=== PATIENT | male | born 1960 | race Caucasian/White ===

== ENCOUNTER 2023-06-03 17:44 | Emergency (ER) | payer OTHER, MEDICAID ==
[~2023-06-03] VITALS: Ht 182.9 cm; Wt 100.0 kg
[~2023-06-03 17:44] MED LIST: AMLO5TAB16 PO; BICA50TA7 PO; CLON1TAB13 PO; ERGO500093 PO; ESCI20TA39 PO; GABA600T13 PO; LOSA100T58 PO; METO50TA17 PO; OXYC-658 PO; PANT40TA54 PO; SUVO20TA PO
[2023-06-03] MEDS: proCHLORperazine 10 MG/2 ml inj IV ONE (19:05)
[2023-06-03] MEDS: pantoprazole 40 MG vial IV ONE (19:05)
[2023-06-03] MEDS: normal saline 1000ML IV soln IVB ONE (19:05)
[2023-06-03] MEDS: LORazepam 2 mg/ml vial IV ONE (19:05)
[2023-06-03 19:35] LABS: BASOPHILS % (AUTO) 0.4 % (0-1); EOSINOPHILS # (AUTO) 0.2 X10'3 (0-0.9); EOSINOPHILS % (AUTO) 1.7 % (0-6); HEMATOCRIT 26.5 % (42.0-52.0); HEMOGLOBIN 9.1 g/dl (14.0-17.9); LYMPHOCYTES % (AUTO) 11.6 % (21-51); MEAN CORPUSCULAR HGB CONC 34.3 g/dL (33.0-36.5); MEAN CORPUSCULAR VOLUME 87.3 FL (78-98); MEAN PLATELET VOLUME 7.9 FL (7.4-10.4); MONOCYTES # (AUTO) 0.9 X10'3 (0-0.9); MONOCYTES % (AUTO) 10.6 % (2-12); NEUTROPHILS # (AUTO) 6.7 X10'3 (1.8-7.7); NEUTROPHILS % (AUTO) 75.7 % (42-75); PLATELET COUNT 328 X10'3 (140-440); RED BLOOD COUNT 3.03 X10'6 (4.70-6.10); RED CELL DISTRIBUTION WIDTH 13.7 % (11.5-14.5); WHITE BLOOD COUNT 8.9 X10'3 (4.5-11.0)
[2023-06-03 19:39] LABS: ALANINE AMINOTRANSFERASE 10 U/L (12-78); ALBUMIN/GLOBULIN RATIO 0.8 (1.1-1.5); ALKALINE PHOSPHATASE 119 IU/L (46-116); ANION GAP 6 (8-16); ASPARTATE AMINO TRANSFERASE 6 U/L (10-37); BILIRUBIN,TOTAL 0.4 MG/DL (0.1-1.0); BLOOD UREA NITROGEN 15 MG/DL (7-18); BUN/CREATININE RATIO 17.9 (10.0-20.0); CALCIUM 8.2 MG/DL (8.5-10.1); CHLORIDE 99 MMOL/L (99-107); CREATININE 0.84 MG/DL (0.60-1.10); GLUCOSE 122 MG/DL (70-104); POTASSIUM 4.3 MMOL/L (3.5-5.1); SODIUM 136 MMOL/L (135-145); TOTAL CARBON DIOXIDE 30.6 MMOL/L (24-32); TOTAL PROTEIN 6.9 G/DL (6.4-8.2); eCRCL 101 ML/MIN; eGFR > 90 ML/MIN
[2023-06-03 19:47] LABS: LIPASE 30 U/L (16-77)
[2023-06-03 21:32] LABS: BILIRUBIN,URINE NEGATIVE (Neg); CLARITY,URINE CLEAR (Clear); COLOR,URINE YELLOW (Yellow); GLUCOSE, URINE NEGATIVE (Neg); KETONES,URINE NEGATIVE (Neg); LEUKOCYTE ESTERASE ,URINE NEGATIVE (Neg); NITRITES, URINE NEGATIVE (Neg); OCCULT BLOOD,URINE NEGATIVE (Neg); PROTEIN,URINE NEGATIVE (Neg)
[2023-06-03 21:35] LABS: UA COLLECTION TYPE CLN CATCH MIDSTREAM
[2023-06-03 23:27] VITALS: BP 136/68; PULSE 80; RESP 18; TEMP 98.6; O2SAT 98
== END 2023-06-03 23:30 | disposition home or self-care (01) ==
LOC: ER 17:44
DX: M79.605 Pain in left leg (principal); R10.9 Unspecified abdominal pain; R11.10 Vomiting, unspecified; I10 Essential (primary) hypertension; R11.0 Nausea; Z79.899 Other long term (current) drug therapy
CPT/HCPCS: 36415; 71045; 80053; 81003; 83690; 84484; 85025; 93005; 99285; A6449

== ENCOUNTER 2023-06-11 18:32 | Inpatient (IN) | payer OTHER, MEDICAID ==
[~2023-06-11] VITALS: Ht 182.9 cm; Wt 91.3 kg
[2023-06-11 23:26] LABS: BILIRUBIN,URINE NEGATIVE (Neg); CLARITY,URINE CLEAR (Clear); COLOR,URINE YELLOW (Yellow); GLUCOSE, URINE NEGATIVE (Neg); KETONES,URINE NEGATIVE (Neg); LEUKOCYTE ESTERASE ,URINE NEGATIVE (Neg); NITRITES, URINE NEGATIVE (Neg); OCCULT BLOOD,URINE NEGATIVE (Neg); PROTEIN,URINE NEGATIVE (Neg); UROBILINOGEN,URINE 0.2 E.U/dL (0.2-1.0)
[2023-06-11 23:29] LABS: UA COLLECTION TYPE CLN CATCH MIDSTREAM
[2023-06-12] MEDS ORDERED: mag hydrox/Alum hydrox/simeth 30ml oral suspension PO PRN (00:05)
[2023-06-12] MEDS ORDERED: ondansetron/PF 4mg/2ml inj IV PRN (00:05)
[2023-06-12] MEDS ORDERED: potassium Cl 40MEQ/1/2NS 520ml 520 ML IV PRN (00:05)
[2023-06-12] MEDS ORDERED: magnesium hydroxide 30ml (MOM) UD suspension PO PRN (00:05)
[2023-06-12] MEDS ORDERED: magnesium 4gm in 100ml NS 100 ML IV PRN (00:05)
[2023-06-12] MEDS ORDERED: magnesium Cl slow-release 64mg tablet PO PRN (00:05)
[2023-06-12] MEDS ORDERED: acetaminophen 325mg tablet PO PRN (00:05)
[2023-06-12] MEDS ORDERED: potassium Cl 20 mEq SR tablet PO PRN ×2 (00:05)
[2023-06-12] MEDS: normal saline 1000ml 1,000 ML IV SCH (01:03)
[2023-06-12] MEDS: HYDROcodone/acetaminophen 10/325mg tab PO PRN (01:08)
[2023-06-12] MEDS ORDERED: HYDROcodone/acetaminophen 10/325mg tab PO PRN (04:35)
[2023-06-12] MEDS: HYDROmorphone 1 mg/ml syringe IV ONE (05:20)
[2023-06-12 06:02] LABS: ALBUMIN 3.1 G/DL (3.4-5.0); ANION GAP 10 (8-16); BLOOD UREA NITROGEN 21 MG/DL (7-18); BUN/CREATININE RATIO 22.8 (10.0-20.0); CALCIUM 8.8 MG/DL (8.5-10.1); CHLORIDE 104 MMOL/L (99-107); CREATININE 0.92 MG/DL (0.60-1.10); GLUCOSE 78 MG/DL (70-104); POTASSIUM 4.2 MMOL/L (3.5-5.1); SODIUM 142 MMOL/L (135-145); TOTAL CARBON DIOXIDE 27.9 MMOL/L (24-32); eCRCL 93 ML/MIN; eGFR 84 ML/MIN
[2023-06-12 06:09] LABS: BASOPHILS % (AUTO) 0.6 % (0-1); EOSINOPHILS # (AUTO) 0.1 X10'3 (0-0.9); HEMATOCRIT 30.4 % (42.0-52.0); LYMPHOCYTES # (AUTO) 1.1 X10'3 (1.1-4.8); LYMPHOCYTES % (AUTO) 15.6 % (21-51); MEAN CORPUSCULAR HEMOGLOBIN 28.6 PG (27.0-31.0); MEAN CORPUSCULAR HGB CONC 32.8 g/dL (33.0-36.5); MONOCYTES # (AUTO) 0.6 X10'3 (0-0.9); MONOCYTES % (AUTO) 7.9 % (2-12); NEUTROPHILS # (AUTO) 5.3 X10'3 (1.8-7.7); NEUTROPHILS % (AUTO) 74.9 % (42-75); PLATELET COUNT 455 X10'3 (140-440); RED BLOOD COUNT 3.49 X10'6 (4.70-6.10); RED CELL DISTRIBUTION WIDTH 13.8 % (11.5-14.5)
[2023-06-12 07:15] VITALS: BP 155/69; PULSE 71; RESP 18; TEMP 98.2; O2SAT 96
[2023-06-12] MEDS: docusate sod 100mg capsule PO SCH (07:31)
[2023-06-12] MEDS: HYDROmorphone/PF 0.2 MG/ML SYRINGE IV PRN (07:31)
[2023-06-12] MEDS: enoxaparin 40mg/0.4ml syringe SUBCUT SCH (07:32)
[2023-06-12 08:42] VITALS: RESP 18; O2SAT 96
[2023-06-12 12:06] VITALS: BP 139/66; PULSE 69; RESP 16; TEMP 98.1; O2SAT 97
[2023-06-12] MEDS: oxyCODONE/APAP 10/325mg tablet PO PRN (12:25)
[2023-06-12] MEDS: ibuprofen 200mg tablet PO ONE (16:17)
[2023-06-12] MEDS: clonazePAM 1mg tablet PO ONE (16:17)
[2023-06-12 18:00] VITALS: BP 138/82; PULSE 83; RESP 18; TEMP 98; O2SAT 97
[2023-06-12 20:20] VITALS: RESP 18; O2SAT 97
[2023-06-12] MEDS: traMADol 50MG tablet PO PRN (21:55)
[2023-06-12 22:00] VITALS: BP 148/58; PULSE 54; RESP 18; TEMP 97.8; O2SAT 97
[2023-06-13] VITALS (8 sets, daily range): BP systolic 133–152; BP diastolic 59–98; PULSE 60–103; RESP 14–20; TEMP 97.6–98.1; O2SAT 93–97
[2023-06-13 05:51] LABS: ALBUMIN 2.7 G/DL (3.4-5.0); ANION GAP 10 (8-16); BLOOD UREA NITROGEN 15 MG/DL (7-18); BUN/CREATININE RATIO 20.3 (10.0-20.0); CALCIUM 8.4 MG/DL (8.5-10.1); CHLORIDE 103 MMOL/L (99-107); CREATININE 0.74 MG/DL (0.60-1.10); GLUCOSE 85 MG/DL (70-104); POTASSIUM 3.5 MMOL/L (3.5-5.1); SODIUM 140 MMOL/L (135-145); TOTAL CARBON DIOXIDE 27.5 MMOL/L (24-32); eCRCL 115 ML/MIN; eGFR > 90 ML/MIN
[2023-06-13 05:56] LABS: BASOPHILS % (AUTO) 0.7 % (0-1); EOSINOPHILS # (AUTO) 0.2 X10'3 (0-0.9); EOSINOPHILS % (AUTO) 2.9 % (0-6); HEMATOCRIT 26.6 % (42.0-52.0); LYMPHOCYTES # (AUTO) 1.7 X10'3 (1.1-4.8); LYMPHOCYTES % (AUTO) 28.4 % (21-51); MEAN CORPUSCULAR VOLUME 85.3 FL (78-98); MEAN PLATELET VOLUME 7.5 FL (7.4-10.4); MONOCYTES # (AUTO) 0.7 X10'3 (0-0.9); MONOCYTES % (AUTO) 11.9 % (2-12); NEUTROPHILS # (AUTO) 3.4 X10'3 (1.8-7.7); NEUTROPHILS % (AUTO) 56.1 % (42-75); PLATELET COUNT 402 X10'3 (140-440); RED BLOOD COUNT 3.11 X10'6 (4.70-6.10); RED CELL DISTRIBUTION WIDTH 14.1 % (11.5-14.5); WHITE BLOOD COUNT 6.1 X10'3 (4.5-11.0)
[2023-06-13] MEDS ORDERED: clonazePAM 1mg tablet PO PRN (13:25)
[2023-06-13] MEDS ORDERED: SUVOREXANT 20 MG PO PRN (13:35)
[2023-06-13] MEDS: pantoprazole 40mg Tablet.DR PO SCH (13:56)
[2023-06-13] MEDS: amLODIPine 5mg tablet PO SCH (13:56)
[2023-06-13] MEDS ORDERED: metoprolol tartrate 50mg tablet PO SCH (20:00)
[2023-06-13] MEDS ORDERED: gabapentin 300mg capsule PO SCH (21:00)
[2023-06-14] MEDS ORDERED: losartan 50mg tablet PO SCH (08:00)
[2023-06-14] MEDS ORDERED: ESCITALOPRAM 10 mg tablet 10 MG TABLET PO SCH (08:00)
== END 2023-06-13 17:51 | disposition home health service (06) | DRG 93 ==
LOC: ER 18:33 → ED HOLD 06-12 00:05 → SUR 3N 06-12 07:12
PROVIDERS: ADMIT Internal Medicine Critical Care Medicine; ATTEND Internal Medicine
DX: G89.4 Chronic pain syndrome (principal); I10 Essential (primary) hypertension; M25.579 Pain in unspecified ankle and joints of unspecified foot; R53.1 Weakness; C61 Malignant neoplasm of prostate; Z79.899 Other long term (current) drug therapy
CPT/HCPCS: 36415; 80048; 81003; 85025; 87081; 97116; 97161; 97530; 99285; A6446; A6449; G0378; J1170; J1650; J7030

== ENCOUNTER 2023-08-15 17:24 | Inpatient (IN) | payer OTHER, MEDICAID ==
[~2023-08-15] VITALS: Ht 180.3 cm; Wt 101.3 kg
[2023-08-15 21:00] VITALS: BP 147/75; PULSE 66; RESP 16; TEMP 97.3; O2SAT 99
[2023-08-15] MEDS ORDERED: ringers solution, lacted 1,000 ML IV SCH (21:45)
[2023-08-15 23:06] LABS: BASOPHILS % (AUTO) 0.5 % (0-1); EOSINOPHILS # (AUTO) 0.3 X10'3 (0-0.9); EOSINOPHILS % (AUTO) 3.3 % (0-6); LYMPHOCYTES # (AUTO) 1.5 X10'3 (1.1-4.8); LYMPHOCYTES % (AUTO) 18.2 % (21-51); MEAN CORPUSCULAR HEMOGLOBIN 28.2 PG (27.0-31.0); MEAN CORPUSCULAR HGB CONC 33.1 g/dL (33.0-36.5); MEAN CORPUSCULAR VOLUME 85.2 FL (78-98); MEAN PLATELET VOLUME 7.2 FL (7.4-10.4); MONOCYTES # (AUTO) 0.8 X10'3 (0-0.9); MONOCYTES % (AUTO) 9.8 % (2-12); NEUTROPHILS # (AUTO) 5.8 X10'3 (1.8-7.7); NEUTROPHILS % (AUTO) 68.2 % (42-75); PLATELET COUNT 273 X10'3 (140-440); RED BLOOD COUNT 3.17 X10'6 (4.70-6.10); RED CELL DISTRIBUTION WIDTH 15.2 % (11.5-14.5); WHITE BLOOD COUNT 8.4 X10'3 (4.5-11.0)
[2023-08-15 23:18] LABS: ALANINE AMINOTRANSFERASE 8 U/L (12-78); ALBUMIN 2.9 G/DL (3.4-5.0); ALBUMIN/GLOBULIN RATIO 0.7 (1.1-1.5); ALKALINE PHOSPHATASE 114 IU/L (46-116); ANION GAP 2 (8-16); ASPARTATE AMINO TRANSFERASE 4 U/L (10-37); BILIRUBIN,TOTAL 0.3 MG/DL (0.1-1.0); BLOOD UREA NITROGEN 19 MG/DL (7-18); BUN/CREATININE RATIO 18.4 (10.0-20.0); CHLORIDE 103 MMOL/L (99-107); CREATININE 1.03 MG/DL (0.60-1.10); GLUCOSE 115 MG/DL (70-104); POTASSIUM 3.8 MMOL/L (3.5-5.1); SODIUM 138 MMOL/L (135-145); TOTAL CARBON DIOXIDE 32.6 MMOL/L (24-32); eCRCL 79 ML/MIN; eGFR 73 ML/MIN
[2023-08-15] MEDS ORDERED: ENZA40TA PO (23:24)
[2023-08-15] MEDS ORDERED: CARI1.5C PO (23:24)
[2023-08-15] MEDS ORDERED: OXYC20TA55 PO (23:24)
[2023-08-15] MEDS: ringers solution, lacted 1,000 ML IV SCH (23:38)
[2023-08-16] VITALS (16 sets, daily range): BP systolic 134–190; BP diastolic 62–99; PULSE 56–72; RESP 15–20; TEMP 97.1–98.7; O2SAT 95–100
[2023-08-16] MEDS ORDERED: vancomycin 1,500 MG in NS 300ml IV soln IV ONE (05:30)
[2023-08-16] MEDS ORDERED: cefazolin 2gm/D5W 100mL 100 ML IV ONE (05:30)
[2023-08-16] MEDS: cefazolin 2gm/D5W 100mL 100 ML IV ONE ×2 (05:30→22:00)
[2023-08-16] MEDS: DOCUMENT DATE & TIME OF BETA-BLOCKER PO ONE (06:05)
[2023-08-16] MEDS ORDERED: losartan 50mg tablet PO SCH (08:00)
[2023-08-16] MEDS ORDERED: amLODIPine 5mg tablet PO SCH (08:00)
[2023-08-16] MEDS ORDERED: ceFAZolin/D5W- 1GM premix 50 ML IV ONE (08:00)
[2023-08-16 08:32] LABS: BASOPHILS % (AUTO) 0.7 % (0-1); EOSINOPHILS # (AUTO) 0.3 X10'3 (0-0.9); EOSINOPHILS % (AUTO) 4.2 % (0-6); HEMOGLOBIN 9.2 g/dl (14.0-17.9); LYMPHOCYTES # (AUTO) 1.3 X10'3 (1.1-4.8); LYMPHOCYTES % (AUTO) 18.5 % (21-51); MEAN CORPUSCULAR HEMOGLOBIN 27.7 PG (27.0-31.0); MEAN CORPUSCULAR HGB CONC 32.8 g/dL (33.0-36.5); MEAN CORPUSCULAR VOLUME 84.6 FL (78-98); MEAN PLATELET VOLUME 7.1 FL (7.4-10.4); MONOCYTES # (AUTO) 0.7 X10'3 (0-0.9); MONOCYTES % (AUTO) 10.6 % (2-12); NEUTROPHILS # (AUTO) 4.5 X10'3 (1.8-7.7); PLATELET COUNT 272 X10'3 (140-440); RED BLOOD COUNT 3.31 X10'6 (4.70-6.10); RED CELL DISTRIBUTION WIDTH 15.4 % (11.5-14.5); WHITE BLOOD COUNT 6.8 X10'3 (4.5-11.0)
[2023-08-16 08:44] LABS: INR 1.1 INR; PROTHROMBIN TIME 11.6 SECONDS (9.0-12.0)
[2023-08-16 09:10] LABS: ALANINE AMINOTRANSFERASE 7 U/L (12-78); ALBUMIN 2.8 G/DL (3.4-5.0); ALBUMIN/GLOBULIN RATIO 0.7 (1.1-1.5); ALKALINE PHOSPHATASE 112 IU/L (46-116); ANION GAP 5 (8-16); ASPARTATE AMINO TRANSFERASE 12 U/L (10-37); BILIRUBIN,TOTAL 0.4 MG/DL (0.1-1.0); BLOOD UREA NITROGEN 15 MG/DL (7-18); BUN/CREATININE RATIO 16.9 (10.0-20.0); CALCIUM 8.4 MG/DL (8.5-10.1); CHLORIDE 105 MMOL/L (99-107); CREATININE 0.89 MG/DL (0.60-1.10); GLUCOSE 84 MG/DL (70-104); POTASSIUM 3.7 MMOL/L (3.5-5.1); SODIUM 140 MMOL/L (135-145); TOTAL CARBON DIOXIDE 29.6 MMOL/L (24-32); TOTAL PROTEIN 6.8 G/DL (6.4-8.2); eCRCL 92 ML/MIN; eGFR 87 ML/MIN
[2023-08-16] MEDS ORDERED: potassium Cl 20 mEq SR tablet PO PRN ×2 (10:50)
[2023-08-16] MEDS ORDERED: magnesium Cl slow-release 64mg tablet PO PRN (10:50)
[2023-08-16] MEDS ORDERED: potassium Cl 40MEQ/1/2NS 520ml 520 ML IV PRN (10:50)
[2023-08-16] MEDS ORDERED: ondansetron/PF 4mg/2ml inj IV PRN ×2 (11:40→19:30)
[2023-08-16] MEDS ORDERED: meperidine/PF 25mg/ml syringe IV PRN ×6 (11:40→19:30)
[2023-08-16] MEDS ORDERED: labetalol 20mg/4ml (5mg/ml) syringe IV PRN ×2 (11:40→19:30)
[2023-08-16] MEDS ORDERED: morphine 2 MG/ML inj. syringe IV PRN ×2 (11:40→19:30)
[2023-08-16] MEDS ORDERED: morphine 4 MG/ML inj SYRINge IV PRN ×2 (11:40→19:30)
[2023-08-16] MEDS: ringers solution, lacted 1,000 ML IV SCH ×2 (11:40→19:30)
[2023-08-16] MEDS ORDERED: proCHLORperazine 10 MG/2 ml inj IV PRN ×2 (11:40→19:30)
[2023-08-16] MEDS ORDERED: enalaprilat dihydrate 2.5mg/2ml vial IV PRN ×2 (11:40→19:30)
[2023-08-16 12:38] LABS: MAGNESIUM 1.3 MG/DL (1.5-2.4)
[2023-08-16] MEDS: magnesium 2GM in 50ml NS 50 ML IV PRN (12:48)
[2023-08-16] MEDS: amLODIPine 5mg tablet PO SCH (13:17)
[2023-08-16] MEDS: losartan 50mg tablet PO SCH (13:17)
[2023-08-16] MEDS: metoprolol tartrate 50mg tablet PO SCH (13:30)
[2023-08-16] MEDS: magnesium 4gm in 100ml NS 100 ML IV PRN (15:51)
[2023-08-16] MEDS: pantoprazole 40mg Tablet.DR PO SCH (17:55)
[2023-08-16] MEDS ORDERED: BUPIVAcaine 2.5mg/ml inj 50ml vial (contains preservative) ONE (19:43)
[2023-08-16] MEDS ORDERED: sevoflurane 250ml liquid IH ONE (19:52)
[2023-08-16] MEDS: oxyCODONE SR 10mg (sust. release) tab PO SCH (20:00)
[2023-08-16] MEDS ORDERED: metoprolol tartrate 50mg tablet PO SCH (20:00)
[2023-08-16] MEDS: K and/or MAG REPLACEMENT MC SCH (20:00)
[2023-08-16] MEDS ORDERED: MIDAZolam 1 MG/ML 5ML VIAL ONE (20:06)
[2023-08-16] MEDS ORDERED: fentaNYL /PF 50mcg/ml 5ml ampule ONE (20:07)
[2023-08-16] MEDS ORDERED: propofol inj 20 ML IV ONE (20:22)
[2023-08-16] MEDS ORDERED: BUPIVAcaine/PF 7.5mg/ml (0.75%) 10ml vial ONE (20:23)
[2023-08-16] MEDS ORDERED: 0.9 % SODIUM CHLORIDE 10 ML VIAL ONE (20:23)
[2023-08-16] MEDS ORDERED: dexamethasone sod phosphate 4mg/ml inj. ONE (20:42)
[2023-08-16] MEDS: bacitracin 15gm ointment TP ONE (20:53)
[2023-08-16] MEDS: CARIPRAZINE 1.5 MG CAPSULE PO SCH (21:00)
[2023-08-16] MEDS: ENZALUTAMIDE 40 MG PO SCH (21:00)
[2023-08-16] MEDS: gabapentin 300mg capsule PO SCH (21:00)
[2023-08-16] MEDS ORDERED: acetaminophen 1,000mg/100ml IV 100 ML IV ONE (21:50)
[2023-08-16] MEDS ORDERED: ondansetron/PF 4mg/2ml inj ONE (22:43)
[2023-08-16] MEDS: vancomycin 1,000mg inj ONE (23:07)
[2023-08-17] VITALS (13 sets, daily range): BP systolic 111–143; BP diastolic 60–75; PULSE 52–68; RESP 14–16; TEMP 97.3–98.5; O2SAT 95–100
[2023-08-17] MEDS: clonazePAM 1mg tablet PO PRN (00:14)
[2023-08-17 06:28] LABS: BASOPHILS # (AUTO) 0.1 X10'3 (0-0.2); EOSINOPHILS % (AUTO) 0.1 % (0-6); HEMATOCRIT 30.5 % (42.0-52.0); HEMOGLOBIN 10.3 g/dl (14.0-17.9); LYMPHOCYTES # (AUTO) 0.3 X10'3 (1.1-4.8); LYMPHOCYTES % (AUTO) 3.3 % (21-51); MEAN CORPUSCULAR HGB CONC 33.7 g/dL (33.0-36.5); MEAN PLATELET VOLUME 7.3 FL (7.4-10.4); MONOCYTES # (AUTO) 0.2 X10'3 (0-0.9); MONOCYTES % (AUTO) 2.6 % (2-12); NEUTROPHILS # (AUTO) 7.8 X10'3 (1.8-7.7); PLATELET COUNT 310 X10'3 (140-440); RED BLOOD COUNT 3.68 X10'6 (4.70-6.10); RED CELL DISTRIBUTION WIDTH 15.2 % (11.5-14.5); WHITE BLOOD COUNT 8.4 X10'3 (4.5-11.0)
[2023-08-17 06:38] LABS: ALBUMIN 2.8 G/DL (3.4-5.0); ANION GAP 2 (8-16); BLOOD UREA NITROGEN 12 MG/DL (7-18); CALCIUM 8.4 MG/DL (8.5-10.1); CHLORIDE 100 MMOL/L (99-107); CREATININE 0.86 MG/DL (0.60-1.10); GLUCOSE 211 MG/DL (70-104); MAGNESIUM 2.1 MG/DL (1.5-2.4); POTASSIUM 4.7 MMOL/L (3.5-5.1); SODIUM 134 MMOL/L (135-145); TOTAL CARBON DIOXIDE 32.4 MMOL/L (24-32); eCRCL 95 ML/MIN; eGFR 90 ML/MIN
[2023-08-17] MEDS: ESCITALOPRAM 10 mg tablet 10 MG TABLET PO SCH (09:02)
[2023-08-17] MEDS ORDERED: OXYC1TAB17 PO (14:24)
[2023-08-17] MEDS: oxyCODONE/APAP 10/325mg tablet PO PRN (20:27)
[2023-08-18 06:00] VITALS: BP 150/64; PULSE 49; RESP 18; TEMP 96.8; O2SAT 96
[2023-08-18 06:25] LABS: BASOPHILS % (AUTO) 0.1 % (0-1); EOSINOPHILS % (AUTO) 0.4 % (0-6); HEMATOCRIT 26.6 % (42.0-52.0); HEMOGLOBIN 8.8 g/dl (14.0-17.9); LYMPHOCYTES # (AUTO) 1.5 X10'3 (1.1-4.8); LYMPHOCYTES % (AUTO) 16.8 % (21-51); MEAN CORPUSCULAR HEMOGLOBIN 27.8 PG (27.0-31.0); MEAN CORPUSCULAR VOLUME 84.3 FL (78-98); MEAN PLATELET VOLUME 7.5 FL (7.4-10.4); MONOCYTES # (AUTO) 0.8 X10'3 (0-0.9); MONOCYTES % (AUTO) 9.4 % (2-12); NEUTROPHILS # (AUTO) 6.5 X10'3 (1.8-7.7); NEUTROPHILS % (AUTO) 73.3 % (42-75); PLATELET COUNT 286 X10'3 (140-440); RED BLOOD COUNT 3.16 X10'6 (4.70-6.10); RED CELL DISTRIBUTION WIDTH 15.1 % (11.5-14.5); WHITE BLOOD COUNT 8.9 X10'3 (4.5-11.0)
[2023-08-18 06:39] LABS: ALBUMIN 2.8 G/DL (3.4-5.0); ANION GAP 4 (8-16); BLOOD UREA NITROGEN 14 MG/DL (7-18); BUN/CREATININE RATIO 18.9 (10.0-20.0); CALCIUM 8.4 MG/DL (8.5-10.1); CHLORIDE 102 MMOL/L (99-107); CREATININE 0.74 MG/DL (0.60-1.10); GLUCOSE 96 MG/DL (70-104); MAGNESIUM 1.8 MG/DL (1.5-2.4); POTASSIUM 3.8 MMOL/L (3.5-5.1); SODIUM 138 MMOL/L (135-145); TOTAL CARBON DIOXIDE 32.4 MMOL/L (24-32); eCRCL 110 ML/MIN; eGFR > 90 ML/MIN
[2023-08-18 11:00] VITALS: BP 132/75; PULSE 52; RESP 16; TEMP 97.8; O2SAT 98
[2023-08-18 12:00] VITALS: RESP 16
[2023-08-18] MEDS: vancomycin/NS 1 GM ADD-VANTAGE 250 ML IV SCH (13:03)
[2023-08-18] MEDS: cefepime 2g/NS 100ml ADVANTAGE 100 ML IV SCH (14:55)
[2023-08-18 18:00] VITALS: BP 139/71; PULSE 56; RESP 16; TEMP 98.5; O2SAT 97
[2023-08-18 20:00] VITALS: RESP 16; O2SAT 97
[2023-08-18 22:53] VITALS: BP 124/72; PULSE 57; RESP 12; TEMP 97.8; O2SAT 94
[2023-08-19 06:00] VITALS: BP 177/89; PULSE 67; RESP 16; TEMP 96.8; O2SAT 98
[2023-08-19 06:04] LABS: BASOPHILS % (AUTO) 0.6 % (0-1); EOSINOPHILS # (AUTO) 0.3 X10'3 (0-0.9); EOSINOPHILS % (AUTO) 3.3 % (0-6); HEMATOCRIT 26.4 % (42.0-52.0); HEMOGLOBIN 8.6 g/dl (14.0-17.9); LYMPHOCYTES % (AUTO) 25.5 % (21-51); MEAN CORPUSCULAR HEMOGLOBIN 27.5 PG (27.0-31.0); MEAN CORPUSCULAR HGB CONC 32.4 g/dL (33.0-36.5); MEAN CORPUSCULAR VOLUME 84.9 FL (78-98); MEAN PLATELET VOLUME 7.5 FL (7.4-10.4); MONOCYTES # (AUTO) 0.9 X10'3 (0-0.9); MONOCYTES % (AUTO) 11.2 % (2-12); NEUTROPHILS # (AUTO) 4.6 X10'3 (1.8-7.7); NEUTROPHILS % (AUTO) 59.4 % (42-75); PLATELET COUNT 257 X10'3 (140-440); RED BLOOD COUNT 3.11 X10'6 (4.70-6.10); RED CELL DISTRIBUTION WIDTH 15.8 % (11.5-14.5); WHITE BLOOD COUNT 7.8 X10'3 (4.5-11.0)
[2023-08-19 06:23] LABS: ALBUMIN 2.6 G/DL (3.4-5.0); ANION GAP 7 (8-16); BLOOD UREA NITROGEN 22 MG/DL (7-18); BUN/CREATININE RATIO 24.2 (10.0-20.0); CHLORIDE 101 MMOL/L (99-107); CREATININE 0.91 MG/DL (0.60-1.10); GLUCOSE 82 MG/DL (70-104); MAGNESIUM 1.4 MG/DL (1.5-2.4); POTASSIUM 3.8 MMOL/L (3.5-5.1); SODIUM 138 MMOL/L (135-145); TOTAL CARBON DIOXIDE 29.8 MMOL/L (24-32); eCRCL 90 ML/MIN; eGFR 84 ML/MIN
[2023-08-19 08:30] VITALS: RESP 16; O2SAT 98
[2023-08-19 10:00] VITALS: BP 139/67; PULSE 55; RESP 18; TEMP 97.5; O2SAT 97
[2023-08-19] MEDS: VANCOMYCIN LEVEL IV ONE (11:30)
[2023-08-19 18:00] VITALS: BP 108/72; PULSE 57; RESP 16; TEMP 97.1; O2SAT 97
[2023-08-19 19:55] VITALS: RESP 16; O2SAT 97
[2023-08-19 22:00] VITALS: BP 115/70; PULSE 95; RESP 18; TEMP 96.9; O2SAT 97
[2023-08-19] MEDS: SUVOREXANT 20 MG PO PRN (23:13)
[2023-08-20 06:00] VITALS: BP 150/72; PULSE 56; RESP 16; TEMP 97.3; O2SAT 97
[2023-08-20 06:18] LABS: BASOPHILS % (AUTO) 0.6 % (0-1); EOSINOPHILS # (AUTO) 0.3 X10'3 (0-0.9); EOSINOPHILS % (AUTO) 3.6 % (0-6); HEMATOCRIT 29.3 % (42.0-52.0); HEMOGLOBIN 9.5 g/dl (14.0-17.9); LYMPHOCYTES # (AUTO) 1.9 X10'3 (1.1-4.8); LYMPHOCYTES % (AUTO) 23.1 % (21-51); MEAN CORPUSCULAR HEMOGLOBIN 27.4 PG (27.0-31.0); MEAN CORPUSCULAR HGB CONC 32.4 g/dL (33.0-36.5); MEAN CORPUSCULAR VOLUME 84.4 FL (78-98); MEAN PLATELET VOLUME 7.6 FL (7.4-10.4); MONOCYTES # (AUTO) 0.8 X10'3 (0-0.9); MONOCYTES % (AUTO) 10.3 % (2-12); NEUTROPHILS # (AUTO) 5.1 X10'3 (1.8-7.7); NEUTROPHILS % (AUTO) 62.4 % (42-75); PLATELET COUNT 267 X10'3 (140-440); RED BLOOD COUNT 3.47 X10'6 (4.70-6.10); RED CELL DISTRIBUTION WIDTH 15.5 % (11.5-14.5); WHITE BLOOD COUNT 8.2 X10'3 (4.5-11.0)
[2023-08-20 06:40] LABS: ALBUMIN 2.9 G/DL (3.4-5.0); ANION GAP 6 (8-16); BLOOD UREA NITROGEN 17 MG/DL (7-18); BUN/CREATININE RATIO 17.7 (10.0-20.0); CALCIUM 8.6 MG/DL (8.5-10.1); CHLORIDE 101 MMOL/L (99-107); CREATININE 0.96 MG/DL (0.60-1.10); GLUCOSE 92 MG/DL (70-104); MAGNESIUM 1.5 MG/DL (1.5-2.4); POTASSIUM 3.7 MMOL/L (3.5-5.1); SODIUM 137 MMOL/L (135-145); TOTAL CARBON DIOXIDE 29.7 MMOL/L (24-32); eCRCL 85 ML/MIN; eGFR 79 ML/MIN
[2023-08-20 11:00] VITALS: BP 161/70; PULSE 55; RESP 18; TEMP 97.2; O2SAT 96
[2023-08-20 18:00] VITALS: BP 126/56; PULSE 63; RESP 18; TEMP 97.2; O2SAT 94
[2023-08-20 20:00] VITALS: RESP 18; O2SAT 97
[2023-08-20 22:00] VITALS: BP 171/85; PULSE 58; RESP 23; TEMP 99; O2SAT 98
[2023-08-20 22:50] VITALS: BP 146/84; PULSE 58
[2023-08-21 06:07] LABS: BASOPHILS % (AUTO) 0.5 % (0-1); EOSINOPHILS # (AUTO) 0.3 X10'3 (0-0.9); HEMATOCRIT 28.5 % (42.0-52.0); HEMOGLOBIN 9.4 g/dl (14.0-17.9); LYMPHOCYTES # (AUTO) 1.4 X10'3 (1.1-4.8); MEAN CORPUSCULAR HEMOGLOBIN 27.8 PG (27.0-31.0); MEAN CORPUSCULAR HGB CONC 33.1 g/dL (33.0-36.5); MEAN PLATELET VOLUME 7.7 FL (7.4-10.4); MONOCYTES # (AUTO) 0.8 X10'3 (0-0.9); MONOCYTES % (AUTO) 10.4 % (2-12); NEUTROPHILS # (AUTO) 5.3 X10'3 (1.8-7.7); NEUTROPHILS % (AUTO) 67.1 % (42-75); PLATELET COUNT 259 X10'3 (140-440); RED BLOOD COUNT 3.39 X10'6 (4.70-6.10); RED CELL DISTRIBUTION WIDTH 15.5 % (11.5-14.5); WHITE BLOOD COUNT 7.9 X10'3 (4.5-11.0)
[2023-08-21 06:32] LABS: ALBUMIN 2.9 G/DL (3.4-5.0); ANION GAP 7 (8-16); BLOOD UREA NITROGEN 19 MG/DL (7-18); BUN/CREATININE RATIO 23.5 (10.0-20.0); CALCIUM 8.6 MG/DL (8.5-10.1); CHLORIDE 100 MMOL/L (99-107); CREATININE 0.81 MG/DL (0.60-1.10); GLUCOSE 101 MG/DL (70-104); POTASSIUM 3.7 MMOL/L (3.5-5.1); SODIUM 136 MMOL/L (135-145); TOTAL CARBON DIOXIDE 28.9 MMOL/L (24-32); eCRCL 101 ML/MIN; eGFR > 90 ML/MIN
[2023-08-21 07:00] VITALS: BP 154/69; PULSE 57; RESP 18; TEMP 96.1; O2SAT 96
[2023-08-21 08:45] VITALS: RESP 16; O2SAT 100
[2023-08-21 10:00] VITALS: BP 159/61; PULSE 54; RESP 16; TEMP 97; O2SAT 100
[2023-08-21 11:29] VITALS: RESP 18
== END 2023-08-21 13:49 | disposition home health service (06) | DRG 493 ==
LOC: SUR 3N 17:24
PROVIDERS: ADMIT Podiatrist Foot & Ankle Surgery; ATTEND Internal Medicine
PROC: 0QHH34Z Insertion of Internal Fixation Device into Left Tibia, Percutaneous Approach (ICD-10-PCS; 2023-08-17)
PROC: 0SPJ04Z Removal of Internal Fixation Device from Left Tarsal Joint, Open Approach (ICD-10-PCS; 2023-08-17)
PROC: 0QPH04Z Removal of Internal Fixation Device from Left Tibia, Open Approach (ICD-10-PCS; 2023-08-17)
PROC: 3E0T3BZ Introduction of Anesthetic Agent into Peripheral Nerves and Plexi, Percutaneous Approach (ICD-10-PCS; 2023-08-17)
PROC: 3E0T33Z Introduction of Anti-inflammatory into Peripheral Nerves and Plexi, Percutaneous Approach (ICD-10-PCS; 2023-08-17)
PROC: 02HV33Z Insertion of Infusion Device into Superior Vena Cava, Percutaneous Approach (ICD-10-PCS; principal; 2023-08-20)
DX: T84.623A Infection and inflammatory reaction due to internal fixation device of left tibia, initial encounter (principal); S82.892K Other fracture of left lower leg, subsequent encounter for closed fracture with nonunion; I10 Essential (primary) hypertension; K21.9 Gastro-esophageal reflux disease without esophagitis; F32.A Depression, unspecified; F41.9 Anxiety disorder, unspecified; R73.03 Prediabetes; Y83.8 Other surgical procedures as the cause of abnormal reaction of the patient, or of later complication, without mention of misadventure at the time of the procedure; D64.9 Anemia, unspecified; G89.29 Other chronic pain; X58.XXXA Exposure to other specified factors, initial encounter; X58.XXXD Exposure to other specified factors, subsequent encounter; Y92.89 Other specified places as the place of occurrence of the external cause; Z98.1 Arthrodesis status; Z88.8 Allergy status to other drugs, medicaments and biological substances; Z72.0 Tobacco use; Z85.46 Personal history of malignant neoplasm of prostate; Z79.899 Other long term (current) drug therapy
CPT/HCPCS: 36569; Z7506; Z7508; 36415; 71045; 73610; 76942; 80048; 80053; 80202; 82948; 83735; 85025; 85610; 86885; 86900; 86901; 87070; 87075; 87077; 87081; 87102; 87186; 93005; 97161; 97530; A4615; A4618; A6223; A6253; A6258; A6449; A7000; C1713; C1751; G0378; J0131; J0690; J0692; J1100; J2250; J2405; J2704; J3010; J3370; J3475; J3490; J7030; J7040; J7120

== ENCOUNTER 2023-09-13 18:06 | Emergency (ER) | payer OTHER, MEDICAID ==
[~2023-09-13] VITALS: Ht 182.9 cm; Wt 100.0 kg
[~2023-09-13 18:06] MED LIST changes: +CARI1.5C PO; +ENZA40TA PO; -ERGO500093 PO; -OXYC-658 PO; +OXYC1TAB17 PO; +OXYC20TA55 PO
[2023-09-13 19:05] LABS: BASOPHILS % (AUTO) 0.4 % (0-1); EOSINOPHILS # (AUTO) 0.3 X10'3 (0-0.9); EOSINOPHILS % (AUTO) 4.7 % (0-6); HEMATOCRIT 27.5 % (42.0-52.0); HEMOGLOBIN 8.7 g/dl (14.0-17.9); LYMPHOCYTES # (AUTO) 1.2 X10'3 (1.1-4.8); LYMPHOCYTES % (AUTO) 17.8 % (21-51); MEAN CORPUSCULAR HGB CONC 31.8 g/dL (33.0-36.5); MEAN CORPUSCULAR VOLUME 84.9 FL (78-98); MONOCYTES # (AUTO) 0.8 X10'3 (0-0.9); NEUTROPHILS # (AUTO) 4.6 X10'3 (1.8-7.7); NEUTROPHILS % (AUTO) 65.1 % (42-75); PLATELET COUNT 219 X10'3 (140-440); RED BLOOD COUNT 3.23 X10'6 (4.70-6.10); RED CELL DISTRIBUTION WIDTH 16.8 % (11.5-14.5)
[2023-09-13] MEDS: acetaminophen 325mg tablet PO ONE (19:13)
[2023-09-13 19:15] LABS: ALANINE AMINOTRANSFERASE 10 U/L (12-78); ALBUMIN 3.1 G/DL (3.4-5.0); ALBUMIN/GLOBULIN RATIO 0.7 (1.1-1.5); ALKALINE PHOSPHATASE 140 IU/L (46-116); ANION GAP 8 (8-16); ASPARTATE AMINO TRANSFERASE 16 U/L (10-37); BILIRUBIN,TOTAL 0.4 MG/DL (0.1-1.0); BLOOD UREA NITROGEN 17 MG/DL (7-18); BUN/CREATININE RATIO 13.2 (10.0-20.0); CALCIUM 8.4 MG/DL (8.5-10.1); CHLORIDE 99 MMOL/L (99-107); CREATININE 1.29 MG/DL (0.60-1.10); GLUCOSE 97 MG/DL (70-104); POTASSIUM 4.4 MMOL/L (3.5-5.1); SODIUM 137 MMOL/L (135-145); TOTAL CARBON DIOXIDE 29.6 MMOL/L (24-32); TOTAL PROTEIN 7.4 G/DL (6.4-8.2); eCRCL 65 ML/MIN; eGFR 56 ML/MIN
[2023-09-13 20:15] VITALS: BP 169/79; PULSE 50; RESP 18; TEMP 98.5; O2SAT 100
== END 2023-09-13 20:18 | disposition home or self-care (01) ==
LOC: ER 18:06
DX: D64.9 Anemia, unspecified (principal); I10 Essential (primary) hypertension; Z88.1 Allergy status to other antibiotic agents; Z79.899 Other long term (current) drug therapy
CPT/HCPCS: 36415; 80053; 85025; 86885; 86900; 86901; 93005; 99284

== ENCOUNTER 2023-09-20 07:57 | Observation (INO) | payer OTHER, MEDICAID ==
[2023-09-19 17:19] LABS: BILIRUBIN,URINE NEGATIVE (Neg); CLARITY,URINE CLEAR (Clear); COLOR,URINE YELLOW (Yellow); GLUCOSE, URINE NEGATIVE (Neg); KETONES,URINE TRACE mg/dl (Neg); LEUKOCYTE ESTERASE ,URINE NEGATIVE (Neg); NITRITES, URINE NEGATIVE (Neg); OCCULT BLOOD,URINE NEGATIVE (Neg); PH,URINE 5.5 (4.8-8.0); PROTEIN,URINE NEGATIVE (Neg); UROBILINOGEN,URINE 0.2 E.U/dL (0.2-1.0)
[2023-09-19 17:22] LABS: UA COLLECTION TYPE CLN CATCH MIDSTREAM
[2023-09-19 17:26] LABS: BASOPHILS % (AUTO) 0.7 % (0-1); EOSINOPHILS # (AUTO) 0.4 X10'3 (0-0.9); EOSINOPHILS % (AUTO) 5.6 % (0-6); LYMPHOCYTES # (AUTO) 1.2 X10'3 (1.1-4.8); LYMPHOCYTES % (AUTO) 17.7 % (21-51); MEAN CORPUSCULAR HEMOGLOBIN 27.1 PG (27.0-31.0); MEAN CORPUSCULAR VOLUME 84.6 FL (78-98); MONOCYTES # (AUTO) 0.7 X10'3 (0-0.9); MONOCYTES % (AUTO) 10.1 % (2-12); NEUTROPHILS # (AUTO) 4.4 X10'3 (1.8-7.7); NEUTROPHILS % (AUTO) 65.9 % (42-75); PRE OP HEMATOCRIT 25.1 % (42.0-52.0); PRE OP PLATELET COUNT 251 X10'3 (140-440); PRE OP WHITE BLOOD COUNT 6.7 10'3 (4.8-10.8); RED BLOOD COUNT 2.97 X10'6 (4.70-6.10); RED CELL DISTRIBUTION WIDTH 16.1 % (11.5-14.5)
[2023-09-19 17:43] LABS: ALBUMIN 2.9 G/DL (3.4-5.0); ALBUMIN/GLOBULIN RATIO 0.7 (1.1-1.5); ALKALINE PHOSPHATASE 122 IU/L (46-116); BLOOD UREA NITROGEN 25 MG/DL (7-18); BUN/CREATININE RATIO 18.9 (10.0-20.0); CALCIUM 8.5 MG/DL (8.5-10.1); CHLORIDE 100 MMOL/L (99-107); CREATININE 1.32 MG/DL (0.60-1.10); PRE OP ALT 14 U/L (30-65); PRE OP ANION GAP 7 (8-16); PRE OP AST 14 U/L (10-37); PRE OP BILIRUB, TOTAL 0.4 MG/DL (0.0-1.0); PRE OP GLUCOSE 106 MG/DL (70-104); PRE OP SODIUM 137 MMOL/L (135-145); TOTAL PROTEIN 7.3 G/DL (6.4-8.2); eCRCL 62 ML/MIN; eGFR 55 ML/MIN
[2023-09-20] VITALS (49 sets, daily range): BP systolic 111–200; BP diastolic 60–97; PULSE 42–76; RESP 12–18; TEMP 96.5–98.5; O2SAT 85–100
[~2023-09-20] VITALS: Ht 182.9 cm; Wt 99.1 kg
[~2023-09-20 07:57] MED LIST changes: +DICL75TA5 PO; +DOCUMENT DATE & TIME OF BETA-BLOCKER PO ONE; +ONDA-104 PO; -PANT40TA54 PO; +cefazolin 2gm/D5W 100mL 100 ML IV ONE
[2023-09-20] MEDS: famotidine 20mg tablet PO ONE (09:07)
[2023-09-20] MEDS: ringers solution, lacted 1,000 ML IV SCH (09:08)
[2023-09-20 09:30] LABS: ISTAT CREATININE 1.1 mg/dL (0.8-1.3); ISTAT HGB 9.2 g/dl (14.0-17.9); ISTAT IONIZED CALCIUM 1.2 mmol/L (1.03-1.32); ISTAT K 4.2 mmol/L (3.5-5.1); POC BUN/CREATININE RATIO 20.9 (5.4-32.0)
[2023-09-20] MEDS ORDERED: sevoflurane 250ml liquid IH ONE (09:34)
[2023-09-20] MEDS ORDERED: fentaNYL/PF 50MCG/1 ML 2ML syringe ONE (09:34)
[2023-09-20] MEDS ORDERED: propofol inj 20 ML IV ONE (09:35)
[2023-09-20] MEDS ORDERED: midazolam 1 mg/ML 2ml injection ONE (09:35)
[2023-09-20] MEDS ORDERED: BUPIVAcaine 0.5% inj/PF 30 ML ONE (09:53)
[2023-09-20] MEDS ORDERED: proCHLORperazine 10 MG/2 ml inj IV PRN (10:50)
[2023-09-20] MEDS ORDERED: ondansetron/PF 4mg/2ml inj IV PRN (10:50)
[2023-09-20] MEDS ORDERED: ringers solution, lacted 1,000 ML IV SCH (10:50)
[2023-09-20] MEDS ORDERED: meperidine/PF 25mg/ml syringe IV PRN ×3 (10:50)
[2023-09-20] MEDS ORDERED: morphine 4 MG/ML inj SYRINge IV PRN (10:50)
[2023-09-20] MEDS ORDERED: morphine 2 MG/ML inj. syringe IV PRN (10:50)
[2023-09-20] MEDS: BUPIVAcaine 2.5mg/ml inj 50ml vial (contains preservative) ONE (12:33)
[2023-09-20] MEDS: bacitracin 15gm ointment TP ONE (12:35)
[2023-09-20] MEDS ORDERED: HYDROcodone/acetaminophen 10/325mg tab PO PRN (13:55)
[2023-09-20] MEDS ORDERED: naloxone 0.4 mg/ml inj IV PRN (13:55)
[2023-09-20] MEDS ORDERED: hydrALAZINE 20mg/ml inj. IV PRN (16:35)
[2023-09-20] MEDS ORDERED: clonazePAM 1mg tablet PO PRN (16:40)
[2023-09-20] MEDS ORDERED: ondansetron 4mg rapidly disintigrating tab PO PRN (16:50)
[2023-09-20] MEDS: Diclofenac Sodium 75MG PO SCH (20:00)
[2023-09-20] MEDS: metoprolol tartrate 50mg tablet PO SCH (21:55)
[2023-09-20] MEDS: oxyCODONE SR 10mg (sust. release) tab PO SCH (21:56)
[2023-09-20] MEDS: CARIPRAZINE 1.5 MG CAPSULE PO SCH (21:57)
[2023-09-20] MEDS: gabapentin 300mg capsule PO SCH (21:57)
[2023-09-21 02:00] VITALS: BP 168/73; PULSE 59; RESP 18; TEMP 97; O2SAT 96
[2023-09-21] MEDS: oxyCODONE/APAP 10/325mg tablet PO PRN (05:08)
[2023-09-21] MEDS: losartan 50mg tablet PO SCH (07:30)
[2023-09-21] MEDS: amLODIPine 5mg tablet PO SCH (07:31)
[2023-09-21] MEDS: ESCITALOPRAM 10 mg tablet 10 MG TABLET PO SCH (07:32)
[2023-09-21 10:00] VITALS: BP 143/50; PULSE 58; RESP 18; TEMP 97; O2SAT 98
== END 2023-09-21 13:45 | disposition home or self-care (01) ==
LOC: PAS 07:57 → UNDOADMOB 12:58 → PAS IN 12:58 → ORTHO 4S 16:50
PROVIDERS: ADMIT Podiatrist Foot & Ankle Surgery; ATTEND Podiatrist Foot & Ankle Surgery
DX: T84.84XA Pain due to internal orthopedic prosthetic devices, implants and grafts, initial encounter (principal); S93.06XA Dislocation of unspecified ankle joint, initial encounter; S82.892A Other fracture of left lower leg, initial encounter for closed fracture; M75.122 Complete rotator cuff tear or rupture of left shoulder, not specified as traumatic; M19.012 Primary osteoarthritis, left shoulder; M20.42 Other hammer toe(s) (acquired), left foot; M25.372 Other instability, left ankle; I10 Essential (primary) hypertension; E11.9 Type 2 diabetes mellitus without complications; E66.9 Obesity, unspecified; K21.9 Gastro-esophageal reflux disease without esophagitis; C61 Malignant neoplasm of prostate; F17.220 Nicotine dependence, chewing tobacco, uncomplicated; Y83.9 Surgical procedure, unspecified as the cause of abnormal reaction of the patient, or of later complication, without mention of misadventure at the time of the procedure; Z79.899 Other long term (current) drug therapy; Z96.612 Presence of left artificial shoulder joint; X58.XXXA Exposure to other specified factors, initial encounter; Y93.89 Activity, other specified; Y92.89 Other specified places as the place of occurrence of the external cause; Y99.8 Other external cause status
CPT/HCPCS: 20680; 20692; 36415; 73600; 80047; 80053; 81003; 85025; 97116; 97161; 97530; A6223; C1713; G0378; J0131; J0690; J2250; J2704; J3010; J3490; J7120; 76000; A4618; A6253; A6446; A6449; A7000

== ENCOUNTER 2023-12-22 21:52 | Inpatient (IN) | payer MEDICAID, OTHER ==
[~2023-12-22] VITALS: Ht 182.9 cm; Wt 95.1 kg
[~2023-12-22 21:52] MED LIST changes: -DOCUMENT DATE & TIME OF BETA-BLOCKER PO ONE; -cefazolin 2gm/D5W 100mL 100 ML IV ONE
[2023-12-22 22:41] LABS: BASOPHILS % (AUTO) 0.6 % (0-1); EOSINOPHILS # (AUTO) 0.1 X10'3 (0-0.9); EOSINOPHILS % (AUTO) 1.9 % (0-6); HEMATOCRIT 25.7 % (42.0-52.0); HEMOGLOBIN 8.2 g/dl (14.0-17.9); LYMPHOCYTES # (AUTO) 1.3 X10'3 (1.1-4.8); LYMPHOCYTES % (AUTO) 18.3 % (21-51); MEAN CORPUSCULAR HEMOGLOBIN 26.4 PG (27.0-31.0); MEAN CORPUSCULAR HGB CONC 31.8 g/dL (33.0-36.5); MEAN CORPUSCULAR VOLUME 83.1 FL (78-98); MEAN PLATELET VOLUME 7.6 FL (7.4-10.4); MONOCYTES # (AUTO) 0.6 X10'3 (0-0.9); NEUTROPHILS # (AUTO) 4.9 X10'3 (1.8-7.7); NEUTROPHILS % (AUTO) 70.2 % (42-75); PLATELET COUNT 155 X10'3 (140-440); RED BLOOD COUNT 3.09 X10'6 (4.70-6.10); RED CELL DISTRIBUTION WIDTH 19.1 % (11.5-14.5)
[2023-12-22 22:48] LABS: ALBUMIN 2.9 G/DL (3.4-5.0); ANION GAP 13 (8-16); BLOOD UREA NITROGEN 13 MG/DL (7-18); BUN/CREATININE RATIO 13.4 (10.0-20.0); CALCIUM 8.6 MG/DL (8.5-10.1); CHLORIDE 100 MMOL/L (99-107); CREATININE 0.97 MG/DL (0.60-1.10); GLUCOSE 69 MG/DL (70-104); MAGNESIUM 1.4 MG/DL (1.5-2.4); POTASSIUM 3.1 MMOL/L (3.5-5.1); SODIUM 138 MMOL/L (135-145); TOTAL CARBON DIOXIDE 25.4 MMOL/L (24-32); eCRCL 87 ML/MIN; eGFR 78 ML/MIN
[2023-12-22 23:04] LABS: BILIRUBIN,URINE SMALL (Neg); CLARITY,URINE CLEAR (Clear); COLOR,URINE YELLOW (Yellow); GLUCOSE, URINE NEGATIVE (Neg); KETONES,URINE TRACE mg/dl (Neg); LEUKOCYTE ESTERASE ,URINE NEGATIVE (Neg); NITRITES, URINE NEGATIVE (Neg); OCCULT BLOOD,URINE NEGATIVE (Neg); PROTEIN,URINE NEGATIVE (Neg); UROBILINOGEN,URINE 0.2 E.U/dL (0.2-1.0)
[2023-12-22 23:11] LABS: UA COLLECTION TYPE URINAL
[2023-12-22] MEDS: HYDROcodone/acetaminophen 10/325mg tab PO ONE (23:53)
[2023-12-23] MEDS: potassium CL 10mEq/100ml bag 100 ML IV ONE (02:33)
[2023-12-23] MEDS: normal saline 1000ML IV soln IVB ONE (02:33)
[2023-12-23 02:43] LABS: ALANINE AMINOTRANSFERASE 11 U/L (12-78); ALBUMIN/GLOBULIN RATIO 0.7 (1.1-1.5); ALKALINE PHOSPHATASE 240 IU/L (46-116); ASPARTATE AMINO TRANSFERASE 73 U/L (10-37); BILIRUBIN,DIRECT 0.2 MG/DL (0-0.3); BILIRUBIN,TOTAL 0.6 MG/DL (0.1-1.0); ETHANOL < 10 MG/DL (<10)
[2023-12-23] MEDS: magnesium sulf-water 2g/50mL 50 ML IV ONE (02:48)
[2023-12-23] MEDS ORDERED: ONDA-243 PO (05:31)
[2023-12-23] MEDS ORDERED: iohexol 350MG/ML 100ml bottle IV ONE (10:15)
[2023-12-23] MEDS ORDERED: HYDROcodone/acetaminophen 10/325mg tab PO PRN (14:25)
[2023-12-23] MEDS ORDERED: ondansetron/PF 4mg/2ml inj IV PRN (14:25)
[2023-12-23] MEDS ORDERED: potassium Cl 20 mEq SR tablet PO PRN (14:25)
[2023-12-23] MEDS ORDERED: magnesium hydroxide 30ml (MOM) UD suspension PO PRN (14:25)
[2023-12-23] MEDS ORDERED: acetaminophen 325mg tablet PO PRN (14:25)
[2023-12-23] MEDS ORDERED: HYDROcodone/acetaminophen 5mg/325mg tablet PO PRN (14:25)
[2023-12-23] MEDS ORDERED: mag hydrox/Alum hydrox/simeth 30ml oral suspension PO PRN (14:25)
[2023-12-23] MEDS: oxyCODONE SR 10mg (sust. release) tab PO ONE (14:36)
[2023-12-23] MEDS ORDERED: ZOLP10TA PO (14:48)
[2023-12-23] MEDS ORDERED: HYDROmorphone/PF 0.2 MG/ML SYRINGE IV PRN (15:55)
[2023-12-23] MEDS ORDERED: non-formulary drug (Ondansetron HCl 1 TAB) PO PRN (16:05)
[2023-12-23] MEDS: HYDROmorphone 1 mg/ml syringe IM PRN (17:16)
[2023-12-23] MEDS: amLODIPine 5mg tablet PO SCH (17:16)
[2023-12-23 17:31] LABS: BASOPHILS % (AUTO) 0.3 % (0-1); EOSINOPHILS % (AUTO) 0.6 % (0-6); HEMATOCRIT 26.4 % (42.0-52.0); HEMOGLOBIN 8.4 g/dl (14.0-17.9); LYMPHOCYTES # (AUTO) 1.1 X10'3 (1.1-4.8); LYMPHOCYTES % (AUTO) 12.5 % (21-51); MEAN CORPUSCULAR HEMOGLOBIN 26.4 PG (27.0-31.0); MEAN CORPUSCULAR VOLUME 82.7 FL (78-98); MEAN PLATELET VOLUME 7.3 FL (7.4-10.4); MONOCYTES # (AUTO) 0.7 X10'3 (0-0.9); MONOCYTES % (AUTO) 8.3 % (2-12); NEUTROPHILS # (AUTO) 6.6 X10'3 (1.8-7.7); NEUTROPHILS % (AUTO) 78.3 % (42-75); PLATELET COUNT 155 X10'3 (140-440); RED BLOOD COUNT 3.19 X10'6 (4.70-6.10); RED CELL DISTRIBUTION WIDTH 18.5 % (11.5-14.5); WHITE BLOOD COUNT 8.4 X10'3 (4.5-11.0)
[2023-12-23 17:42] LABS: ALANINE AMINOTRANSFERASE 13 U/L (12-78); ALBUMIN 2.8 G/DL (3.4-5.0); ALBUMIN/GLOBULIN RATIO 0.7 (1.1-1.5); ALKALINE PHOSPHATASE 249 IU/L (46-116); ANION GAP 15 (8-16); ASPARTATE AMINO TRANSFERASE 64 U/L (10-37); BILIRUBIN,TOTAL 0.7 MG/DL (0.1-1.0); BLOOD UREA NITROGEN 7 MG/DL (7-18); BUN/CREATININE RATIO 8.6 (10.0-20.0); CALCIUM 8.3 MG/DL (8.5-10.1); CHLORIDE 97 MMOL/L (99-107); CREATININE 0.81 MG/DL (0.60-1.10); GLUCOSE 69 MG/DL (70-104); POTASSIUM 3.1 MMOL/L (3.5-5.1); SODIUM 138 MMOL/L (135-145); TOTAL CARBON DIOXIDE 26.2 MMOL/L (24-32); TOTAL PROTEIN 6.9 G/DL (6.4-8.2); eCRCL 104 ML/MIN; eGFR > 90 ML/MIN
[2023-12-23 17:52] VITALS: BP 167/69; PULSE 63; RESP 17; TEMP 97.7; O2SAT 96
[2023-12-23 18:18] LABS: MAGNESIUM 1.4 MG/DL (1.5-2.4)
[2023-12-23 20:00] VITALS: RESP 18
[2023-12-23] MEDS: docusate sod 100mg capsule PO SCH (20:17)
[2023-12-23] MEDS: magnesium Cl slow-release 64mg tablet PO PRN (20:17)
[2023-12-23] MEDS: metoprolol tartrate 50mg tablet PO SCH (20:18)
[2023-12-23] MEDS: potassium Cl 20 mEq SR tablet PO PRN (20:19)
[2023-12-23] MEDS: gabapentin 300mg capsule PO SCH (20:19)
[2023-12-23] MEDS: DEXTROSE 15 GM of carb/4 tabs (each vial/BOTTLE has 4 tablets) PO PRN (21:03)
[2023-12-23] MEDS: temazepam 15mg capsule PO PRN (21:16)
[2023-12-23 22:00] VITALS: BP 152/62; PULSE 55; RESP 16; TEMP 97.7; O2SAT 94
[2023-12-24] MEDS: HYDROmorphone 1 mg/ml syringe IV PRN (05:00)
[2023-12-24 05:53] LABS: BASOPHILS % (AUTO) 0.3 % (0-1); EOSINOPHILS # (AUTO) 0.1 X10'3 (0-0.9); EOSINOPHILS % (AUTO) 1.2 % (0-6); HEMATOCRIT 24.9 % (42.0-52.0); LYMPHOCYTES # (AUTO) 0.9 X10'3 (1.1-4.8); LYMPHOCYTES % (AUTO) 12.2 % (21-51); MEAN CORPUSCULAR HEMOGLOBIN 26.7 PG (27.0-31.0); MEAN CORPUSCULAR HGB CONC 32.2 g/dL (33.0-36.5); MEAN CORPUSCULAR VOLUME 83.2 FL (78-98); MEAN PLATELET VOLUME 7.7 FL (7.4-10.4); MONOCYTES # (AUTO) 0.8 X10'3 (0-0.9); MONOCYTES % (AUTO) 10.4 % (2-12); NEUTROPHILS # (AUTO) 5.7 X10'3 (1.8-7.7); NEUTROPHILS % (AUTO) 75.9 % (42-75); PLATELET COUNT 142 X10'3 (140-440); RED CELL DISTRIBUTION WIDTH 18.9 % (11.5-14.5); WHITE BLOOD COUNT 7.5 X10'3 (4.5-11.0)
[2023-12-24 06:00] VITALS: BP 149/59; PULSE 59; RESP 16; TEMP 97.6; O2SAT 98
[2023-12-24 06:09] LABS: ALANINE AMINOTRANSFERASE 10 U/L (12-78); ALBUMIN 2.6 G/DL (3.4-5.0); ALBUMIN/GLOBULIN RATIO 0.7 (1.1-1.5); ALKALINE PHOSPHATASE 233 IU/L (46-116); ANION GAP 10 (8-16); ASPARTATE AMINO TRANSFERASE 70 U/L (10-37); BILIRUBIN,TOTAL 0.7 MG/DL (0.1-1.0); BLOOD UREA NITROGEN 9 MG/DL (7-18); BUN/CREATININE RATIO 11.3 (10.0-20.0); CALCIUM 8.2 MG/DL (8.5-10.1); CHLORIDE 99 MMOL/L (99-107); GLUCOSE 75 MG/DL (70-104); MAGNESIUM 1.5 MG/DL (1.5-2.4); POTASSIUM 3.3 MMOL/L (3.5-5.1); SODIUM 137 MMOL/L (135-145); TOTAL CARBON DIOXIDE 28.4 MMOL/L (24-32); TOTAL PROTEIN 6.4 G/DL (6.4-8.2); eCRCL 105 ML/MIN; eGFR > 90 ML/MIN
[2023-12-24] MEDS: ESCITALOPRAM 10 mg tablet 10 MG TABLET PO SCH (07:53)
[2023-12-24] MEDS: losartan 50mg tablet PO SCH (07:54)
[2023-12-24] MEDS ORDERED: escitalopram 20mg tablet PO SCH (08:00)
[2023-12-24 08:49] LABS: TOTAL CELLS COUNTED 100
[2023-12-24 08:50] LABS: ANISOCYTOSIS 2+; ELLIPTOCYTES FEW; PLATELET ESTIMATE NORMAL; POLYCHROMASIA 1+
[2023-12-24 10:00] VITALS: BP 106/64; PULSE 56; RESP 18; TEMP 96.8; O2SAT 94
[2023-12-24 18:00] VITALS: BP 155/61; PULSE 65; RESP 16; TEMP 97.9; O2SAT 94
[2023-12-24 22:00] VITALS: BP 152/78; PULSE 58; RESP 18; TEMP 96.2; O2SAT 93
[2023-12-25 06:54] LABS: ABSOLUTE RETICS # 106200 /CUMM (23000-93000); BASOPHILS % (AUTO) 0.2 % (0-1); EOSINOPHILS # (AUTO) 0.1 X10'3 (0-0.9); EOSINOPHILS % (AUTO) 1.6 % (0-6); HEMATOCRIT 24.9 % (42.0-52.0); HEMOGLOBIN 7.9 g/dl (14.0-17.9); LYMPHOCYTES # (AUTO) 1.1 X10'3 (1.1-4.8); LYMPHOCYTES % (AUTO) 14.2 % (21-51); MEAN CORPUSCULAR HEMOGLOBIN 26.4 PG (27.0-31.0); MEAN CORPUSCULAR HGB CONC 31.8 g/dL (33.0-36.5); MEAN CORPUSCULAR VOLUME 83.1 FL (78-98); MEAN PLATELET VOLUME 7.5 FL (7.4-10.4); MONOCYTES # (AUTO) 0.8 X10'3 (0-0.9); NEUTROPHILS # (AUTO) 5.8 X10'3 (1.8-7.7); PLATELET COUNT 119 X10'3 (140-440); RED BLOOD COUNT 2.99 X10'6 (4.70-6.10); RED CELL DISTRIBUTION WIDTH 19.1 % (11.5-14.5); RETICULOCYTE % (AUTO) 3.6 % (0.5-1.5); WHITE BLOOD COUNT 7.8 X10'3 (4.5-11.0)
[2023-12-25 07:15] VITALS: BP 168/77; PULSE 60; RESP 18; TEMP 97.4; O2SAT 94
[2023-12-25 07:26] LABS: ALANINE AMINOTRANSFERASE 13 U/L (12-78); ALBUMIN 2.4 G/DL (3.4-5.0); ALBUMIN/GLOBULIN RATIO 0.6 (1.1-1.5); ALKALINE PHOSPHATASE 228 IU/L (46-116); ANION GAP 9 (8-16); ASPARTATE AMINO TRANSFERASE 93 U/L (10-37); BILIRUBIN,TOTAL 0.7 MG/DL (0.1-1.0); BLOOD UREA NITROGEN 10 MG/DL (7-18); BUN/CREATININE RATIO 14.3 (10.0-20.0); CALCIUM 8.3 MG/DL (8.5-10.1); CHLORIDE 99 MMOL/L (99-107); FERRITIN 428 NG/ML (26-388); GLUCOSE 86 MG/DL (70-104); LACTATE DEHYDROGENASE 803 U/L (85-227); MAGNESIUM 1.3 MG/DL (1.5-2.4); PHOSPHORUS 3.4 MG/DL (2.3-4.5); POTASSIUM 4.2 MMOL/L (3.5-5.1); SODIUM 135 MMOL/L (135-145); TOTAL PROTEIN 6.3 G/DL (6.4-8.2); eCRCL 120 ML/MIN; eGFR > 90 ML/MIN
[2023-12-25 07:59] VITALS: RESP 18; O2SAT 94
[2023-12-25 10:00] VITALS: BP 150/71; PULSE 62; RESP 16; TEMP 98.1; O2SAT 95
[2023-12-25 12:54] LABS: FIBRINOGEN 214 MG/DL (177-424); INR 1.3 INR; PROTHROMBIN TIME 13.5 SECONDS (9.0-12.0)
[2023-12-25 13:59] LABS: D-DIMER > 35.20 MG/L FEU (0-0.50)
[2023-12-25] MEDS: HYDROmorphone 1 mg/ml syringe IV PRN (17:06)
[2023-12-25 18:00] VITALS: BP 141/68; PULSE 60; RESP 16; TEMP 98; O2SAT 96
[2023-12-25] MEDS: ketorolac trometh 15mg/ml vial 15 MG/ML ML IV PRN (21:26)
[2023-12-25 22:00] VITALS: BP 164/71; PULSE 60; RESP 13; TEMP 98.6; O2SAT 96
[2023-12-26 06:00] VITALS: BP 165/70; PULSE 62; RESP 14; TEMP 97.5; O2SAT 97
[2023-12-26 06:15] LABS: ALANINE AMINOTRANSFERASE 11 U/L (12-78); ALBUMIN 2.5 G/DL (3.4-5.0); ALBUMIN/GLOBULIN RATIO 0.6 (1.1-1.5); ALKALINE PHOSPHATASE 240 IU/L (46-116); ANION GAP 11 (8-16); ASPARTATE AMINO TRANSFERASE 69 U/L (10-37); BILIRUBIN,TOTAL 0.8 MG/DL (0.1-1.0); BLOOD UREA NITROGEN 13 MG/DL (7-18); BUN/CREATININE RATIO 16.9 (10.0-20.0); CALCIUM 8.1 MG/DL (8.5-10.1); CHLORIDE 97 MMOL/L (99-107); CREATININE 0.77 MG/DL (0.60-1.10); GLUCOSE 80 MG/DL (70-104); MAGNESIUM 1.2 MG/DL (1.5-2.4); PHOSPHORUS 3.9 MG/DL (2.3-4.5); SODIUM 133 MMOL/L (135-145); TOTAL CARBON DIOXIDE 25.5 MMOL/L (24-32); TOTAL PROTEIN 6.4 G/DL (6.4-8.2); eCRCL 109 ML/MIN; eGFR > 90 ML/MIN
[2023-12-26 06:17] LABS: BASOPHILS % (AUTO) 0.3 % (0-1); EOSINOPHILS # (AUTO) 0.2 X10'3 (0-0.9); HEMATOCRIT 24.4 % (42.0-52.0); HEMOGLOBIN 8.1 g/dl (14.0-17.9); LYMPHOCYTES # (AUTO) 1.3 X10'3 (1.1-4.8); LYMPHOCYTES % (AUTO) 16.2 % (21-51); MEAN CORPUSCULAR HEMOGLOBIN 27.2 PG (27.0-31.0); MEAN CORPUSCULAR HGB CONC 33.3 g/dL (33.0-36.5); MEAN CORPUSCULAR VOLUME 81.8 FL (78-98); MONOCYTES # (AUTO) 0.7 X10'3 (0-0.9); MONOCYTES % (AUTO) 8.9 % (2-12); NEUTROPHILS # (AUTO) 5.7 X10'3 (1.8-7.7); NEUTROPHILS % (AUTO) 72.6 % (42-75); PLATELET COUNT 103 X10'3 (140-440); RED BLOOD COUNT 2.99 X10'6 (4.70-6.10); RED CELL DISTRIBUTION WIDTH 19.1 % (11.5-14.5); WHITE BLOOD COUNT 7.8 X10'3 (4.5-11.0)
[2023-12-26 08:00] VITALS: RESP 16; O2SAT 96
[2023-12-26] MEDS: ondansetron 4mg rapidly disintigrating tab PO PRN (08:37)
[2023-12-26 10:00] VITALS: BP 139/63; PULSE 65; RESP 19; TEMP 98; O2SAT 91
[2023-12-26] MEDS ORDERED: magnesium sulf-water 2g/50mL 50 ML IV PRN (17:30)
[2023-12-26] MEDS ORDERED: potassium Cl 40MEQ/1/2NS 520ml 520 ML IV PRN (17:30)
[2023-12-26] MEDS ORDERED: potassium Cl 20 mEq SR tablet PO PRN ×2 (17:30)
[2023-12-26] MEDS ORDERED: magnesium sulf-water 4G/100mL 100 ML IV PRN (17:30)
[2023-12-26 18:00] VITALS: BP 142/61; PULSE 65; RESP 14; TEMP 98.4; O2SAT 90
[2023-12-26] MEDS: clonazePAM 1mg tablet PO PRN (19:25)
[2023-12-26 20:00] VITALS: RESP 14; O2SAT 90
[2023-12-26] MEDS: K and/or MAG REPLACEMENT MC SCH (20:00)
[2023-12-26] MEDS: magnesium Cl slow-release 64mg tablet PO PRN (20:13)
[2023-12-26 22:00] VITALS: BP 140/61; PULSE 66; RESP 16; TEMP 97.6; O2SAT 90
[2023-12-27 06:00] VITALS: BP 134/58; PULSE 61; RESP 16; TEMP 97.6; O2SAT 98
[2023-12-27 07:13] LABS: ALANINE AMINOTRANSFERASE 13 U/L (12-78); ALBUMIN 2.5 G/DL (3.4-5.0); ALBUMIN/GLOBULIN RATIO 0.6 (1.1-1.5); ALKALINE PHOSPHATASE 235 IU/L (46-116); ANION GAP 10 (8-16); ASPARTATE AMINO TRANSFERASE 68 U/L (10-37); BILIRUBIN,TOTAL 0.6 MG/DL (0.1-1.0); BLOOD UREA NITROGEN 19 MG/DL (7-18); CALCIUM 7.9 MG/DL (8.5-10.1); CHLORIDE 98 MMOL/L (99-107); CREATININE 1.12 MG/DL (0.60-1.10); GLUCOSE 89 MG/DL (70-104); MAGNESIUM 1.3 MG/DL (1.5-2.4); PHOSPHORUS 4.8 MG/DL (2.3-4.5); POTASSIUM 4.6 MMOL/L (3.5-5.1); SODIUM 134 MMOL/L (135-145); TOTAL CARBON DIOXIDE 26.4 MMOL/L (24-32); TOTAL PROTEIN 6.6 G/DL (6.4-8.2); eCRCL 75 ML/MIN; eGFR 66 ML/MIN
[2023-12-27 07:14] LABS: BASOPHILS % (AUTO) 0.4 % (0-1); EOSINOPHILS # (AUTO) 0.2 X10'3 (0-0.9); EOSINOPHILS % (AUTO) 1.9 % (0-6); HEMATOCRIT 24.4 % (42.0-52.0); LYMPHOCYTES # (AUTO) 1.2 X10'3 (1.1-4.8); MEAN CORPUSCULAR HEMOGLOBIN 27.2 PG (27.0-31.0); MEAN CORPUSCULAR HGB CONC 32.8 g/dL (33.0-36.5); MEAN CORPUSCULAR VOLUME 82.9 FL (78-98); MEAN PLATELET VOLUME 8.4 FL (7.4-10.4); MONOCYTES # (AUTO) 0.8 X10'3 (0-0.9); MONOCYTES % (AUTO) 9.8 % (2-12); NEUTROPHILS % (AUTO) 72.9 % (42-75); PLATELET COUNT 101 X10'3 (140-440); RED BLOOD COUNT 2.94 X10'6 (4.70-6.10); RED CELL DISTRIBUTION WIDTH 19.1 % (11.5-14.5); WHITE BLOOD COUNT 8.2 X10'3 (4.5-11.0)
[2023-12-27 10:00] VITALS: BP 108/55; PULSE 65; RESP 18; TEMP 97.6; O2SAT 92
[2023-12-27] MEDS: normal saline 1000ml 1,000 ML IV SCH (11:35)
[2023-12-27 18:00] VITALS: BP 149/71; PULSE 61; RESP 16; TEMP 97.6; O2SAT 95
[2023-12-27 22:06] VITALS: BP 143/56; PULSE 66; RESP 16; TEMP 98.9; O2SAT 92
[2023-12-28 06:00] VITALS: BP 144/65; PULSE 57; RESP 16; TEMP 97.8; O2SAT 96
[2023-12-28 07:50] LABS: BASOPHILS % (AUTO) 0.5 % (0-1); EOSINOPHILS # (AUTO) 0.2 X10'3 (0-0.9); HEMATOCRIT 23.4 % (42.0-52.0); HEMOGLOBIN 7.5 g/dl (14.0-17.9); LYMPHOCYTES # (AUTO) 1.3 X10'3 (1.1-4.8); LYMPHOCYTES % (AUTO) 17.5 % (21-51); MEAN CORPUSCULAR HEMOGLOBIN 26.4 PG (27.0-31.0); MEAN CORPUSCULAR HGB CONC 31.9 g/dL (33.0-36.5); MEAN CORPUSCULAR VOLUME 82.8 FL (78-98); MEAN PLATELET VOLUME 8.5 FL (7.4-10.4); MONOCYTES # (AUTO) 0.8 X10'3 (0-0.9); MONOCYTES % (AUTO) 10.6 % (2-12); NEUTROPHILS # (AUTO) 5.2 X10'3 (1.8-7.7); NEUTROPHILS % (AUTO) 69.4 % (42-75); PLATELET COUNT 90 X10'3 (140-440); RED BLOOD COUNT 2.83 X10'6 (4.70-6.10); RED CELL DISTRIBUTION WIDTH 19.1 % (11.5-14.5); WHITE BLOOD COUNT 7.5 X10'3 (4.5-11.0)
[2023-12-28 08:04] LABS: ALANINE AMINOTRANSFERASE 14 U/L (12-78); ALBUMIN 2.3 G/DL (3.4-5.0); ALBUMIN/GLOBULIN RATIO 0.6 (1.1-1.5); ALKALINE PHOSPHATASE 221 IU/L (46-116); ANION GAP 8 (8-16); ASPARTATE AMINO TRANSFERASE 66 U/L (10-37); BILIRUBIN,TOTAL 0.5 MG/DL (0.1-1.0); BLOOD UREA NITROGEN 18 MG/DL (7-18); BUN/CREATININE RATIO 17.6 (10.0-20.0); CALCIUM 7.8 MG/DL (8.5-10.1); CHLORIDE 102 MMOL/L (99-107); CREATININE 1.02 MG/DL (0.60-1.10); GLUCOSE 83 MG/DL (70-104); MAGNESIUM 1.3 MG/DL (1.5-2.4); PHOSPHORUS 4.8 MG/DL (2.3-4.5); POTASSIUM 4.6 MMOL/L (3.5-5.1); SODIUM 136 MMOL/L (135-145); TOTAL CARBON DIOXIDE 26.1 MMOL/L (24-32); TOTAL PROTEIN 6.2 G/DL (6.4-8.2); eCRCL 82 ML/MIN; eGFR 74 ML/MIN
[2023-12-28 08:24] LABS: PLATELET ESTIMATE DECREASED
[2023-12-28 08:25] LABS: ANISOCYTOSIS 2+; ELLIPTOCYTES FEW; HYPOCHROMASIA 1+; POLYCHROMASIA 1+; TEAR DROP CELLS FEW
[2023-12-28 10:00] VITALS: BP 137/63; PULSE 60; RESP 16; TEMP 98.1; O2SAT 100
[2023-12-28 12:40] VITALS: RESP 15
[2023-12-28] MEDS ORDERED: lactose-reduced food (Ensure Enlive) - 237ml bottle PO SCH (13:00)
== END 2023-12-28 13:29 | DRG 469 ==
LOC: ER 21:53 → ED HOLD 12-23 14:37 → ORTHO 4S 12-23 17:38
PROVIDERS: ADMIT Registered Nurse Psychiatric/Mental Health; ATTEND Registered Nurse Psychiatric/Mental Health
PROC: B32T1ZZ Computerized Tomography (CT Scan) of Left Pulmonary Artery using Low Osmolar Contrast (ICD-10-PCS; principal; 2023-12-23)
PROC: B3201ZZ Computerized Tomography (CT Scan) of Thoracic Aorta using Low Osmolar Contrast (ICD-10-PCS; 2023-12-23)
PROC: B32S1ZZ Computerized Tomography (CT Scan) of Right Pulmonary Artery using Low Osmolar Contrast (ICD-10-PCS; 2023-12-23)
DX: N17.9 Acute kidney failure, unspecified (principal); C79.51 Secondary malignant neoplasm of bone; E83.42 Hypomagnesemia; E87.6 Hypokalemia; M06.9 Rheumatoid arthritis, unspecified; R73.03 Prediabetes; G62.9 Polyneuropathy, unspecified; I10 Essential (primary) hypertension; E86.0 Dehydration; F41.9 Anxiety disorder, unspecified; Z88.8 Allergy status to other drugs, medicaments and biological substances; Z91.030 Bee allergy status; Z85.46 Personal history of malignant neoplasm of prostate; Z98.1 Arthrodesis status; Z79.899 Other long term (current) drug therapy
CPT/HCPCS: 36415; 71045; 71275; 73700; 80048; 80053; 80076; 80320; 81003; 82728; 82800; 82948; 83010; 83605; 83615; 83735; 84100; 84145; 85007; 85008; 85025; 85045; 85379; 85384; 85610; 85651; 86880; 87040; 87077; 87081; 87186; 93005; 96365; 96367; 97116; 97161; 99285; A6258; A6449; G0378; J1170; J1885; J3480; J7030; Q9967